=== PATIENT | female | born 1975 | race Caucasian/White ===

== ENCOUNTER 2017-06-24 22:52 | Inpatient (IN) | payer MEDICAID ==
[~2017-06-24] VITALS: Ht 149.9 cm; Wt 61.1 kg
[~2017-06-24 22:52] MED LIST: BIRTH CONTROL MEDS PO; FERR159T3 PO; MULT1CAP19 PO
[2017-06-24] MEDS ORDERED: OMNIPAQUE 350 MG/ML, 100ML BOTTLE ONE (23:10)
[2017-06-24] MEDS ORDERED: ANTIBIOTIC DROPS (23:12)
[2017-06-24] MEDS ORDERED: NEOM28OI4 TP (23:12)
[2017-06-24 23:29] LABS: BASOPHILS # (AUTO) 0.04 x10^3/uL (0-0.1); BASOPHILS % (AUTO) 0 % (0-1); EOSINOPHILS % (AUTO) 0 % (1-7); LYMPHOCYTES # (AUTO) 0.88 x10^3/uL (1-3.4); LYMPHOCYTES % (AUTO) 8 % (22-44); MD NO; MEAN CORPUSCULAR HEMOGLOBIN 27.7 pg (27.0-34.8); MEAN CORPUSCULAR HGB CONC 33.4 g/dL (32.4-35.8); MEAN CORPUSCULAR VOLUME 82.9 fL (80-100); MEAN PLATELET VOLUME 7.4 fL (7.4-10.4); MONOCYTES # (AUTO) 0.24 x10^3/uL (0.2-0.8); MONOCYTES % (AUTO) 2 % (2-9); NEUTROPHILS # (AUTO) 9.77 x10^3/uL (1.8-6.8); NEUTROPHILS % (AUTO) 89 % (42-75); PLATELET COUNT 345 x10^3/uL (130-400); RED BLOOD COUNT 4.64 x10^6/uL (3.82-5.3); RED CELL DISTRIBUTION WIDTH 14.7 % (9.6-15.2)
[2017-06-24] MEDS ORDERED: ONDANSETRON 2MG/ML, 2ML IVPush ONE (23:30)
[2017-06-24] MEDS ORDERED: SODIUM CHLORIDE 0.9% 1,000ML IVBOLUS ONE (23:30)
[2017-06-24] MEDS ORDERED: ONDANSETRON 2MG/ML, 2ML ONE (23:30)
[2017-06-24] MEDS ORDERED: MORPHINE SULFATE 4 MG/ML, 1ML ONE (23:30)
[2017-06-24] MEDS ORDERED: SODIUM CHLORIDE FLUSH 10ML SYR IVF ONE (23:30)
[2017-06-24] MEDS: MORPHINE SULFATE 4 MG/ML, 1ML IVPush PRN (23:35)
[2017-06-24 23:39] LABS: ALANINE AMINOTRANSFERASE 14 U/L (12-78); ALBUMIN 3.4 g/dL (3.4-5.0); ANION GAP 10 mmol/L (5-15); CALCIUM 8.4 mg/dL (8.5-10.1); CHLORIDE 99 mmol/L (98-107)
[2017-06-24 23:42] LABS: MICROSCOPIC NOT IND
[2017-06-24 23:44] LABS: ALKALINE PHOSPHATASE 87 U/L (45-117); BILIRUBIN,TOTAL 1.8 mg/dL (0.2-1.0); CREATININE 0.72 mg/dL (0.55-1.02); TOTAL PROTEIN 8.1 g/dL (6.4-8.2)
[2017-06-24 23:45] LABS: CULTURE INDICATED? NO
[2017-06-25] MEDS ORDERED: MORPHINE SULFATE 4 MG/ML, 1ML ONE ×2 (00:15→09:11)
[2017-06-25] MEDS: MORPHINE SULFATE 4 MG/ML, 1ML IVPush PRN (00:17)
[2017-06-25] MEDS ORDERED: CEFOTETAN PMX 1GM/50ML 50 ML IV ONE (01:00)
[2017-06-25] MEDS ORDERED: CEFOTETAN PMX 1GM/50ML 50 ML ONE ×2 (01:05→01:12)
[2017-06-25] MEDS ORDERED: SODIUM CHLORIDE 0.9% 1,000 ML IV ONE (01:05)
[2017-06-25] MEDS ORDERED: MORPHINE SULFATE 4 MG/ML, 1ML IVPush PRN (01:30)
[2017-06-25] MEDS ORDERED: ONDANSETRON 2MG/ML, 2ML IVPush PRN ×3 (01:30→13:30)
[2017-06-25 02:00] VITALS: BP 98/62
[2017-06-25] MEDS ORDERED: morphine SULFATE 10 MG/ML, 1ML IVPush PRN (07:00)
[2017-06-25 09:15] VITALS: BP 98/56
[2017-06-25] MEDS ORDERED: FENTANYL PF 100 MCG/2ML ONE ×2 (11:15→13:07)
[2017-06-25] MEDS ORDERED: MIDAZOLAM 1 MG/ML, 2ML ONE (11:15)
[2017-06-25] MEDS ORDERED: BUPIVACAINE/PF 0.5% ONE (11:47)
[2017-06-25] MEDS ORDERED: EPINEPHRINE 1 MG/ML, 1ML ONE (11:47)
[2017-06-25] MEDS ORDERED: hydrALAzine 20 MG/ML, 1ML IV PRN ×2 (13:30→17:00)
[2017-06-25] MEDS ORDERED: OXYcodone 5 MG/5 ML ORAL.SOL UDC PO PRN (13:30)
[2017-06-25] MEDS ORDERED: EPHEDRINE 50 MG/ML, 1ML IVPush PRN (13:30)
[2017-06-25] MEDS ORDERED: PROMETHAZINE 12.5 MG SUPP PR PRN (13:30)
[2017-06-25] MEDS ORDERED: morphine SULFATE 10 MG/ML, 1ML IV PRN ×2 (13:30→17:00)
[2017-06-25] MEDS ORDERED: LABETALOL 5MG/ML, 20ML IV PRN (13:30)
[2017-06-25] MEDS ORDERED: PROMETHAZINE 25 MG/ML, 1ML IV PRN (13:30)
[2017-06-25] MEDS ORDERED: MIDAZOLAM 1 MG/ML, 2ML IV PRN (13:30)
[2017-06-25] MEDS ORDERED: METOPROLOL 1 MG/ML, 5ML IV PRN (13:30)
[2017-06-25] MEDS ORDERED: ACETAMINOPHEN 325 MG TABLET PO PRN (13:30)
[2017-06-25] MEDS ORDERED: ALBUTEROL SULFATE 2.5 MG/3 ML NPPB PRN (13:30)
[2017-06-25] MEDS ORDERED: MEPERIDINE/PF 25MG/0.5ML IVPush PRN (13:30)
[2017-06-25] MEDS ORDERED: DIAZEPAM 5 MG/ML, 2ML IVPush PRN (13:30)
[2017-06-25] MEDS ORDERED: FENTANYL PF 100 MCG/2ML IV PRN (13:30)
[2017-06-25] MEDS ORDERED: HYDROcodone/APAP 7.5-325MG/15ML UDC PO PRN (13:30)
[2017-06-25] MEDS ORDERED: OXYcodone 5 MG/5 ML ORAL.SOL UDC ONE (14:20)
[2017-06-25] MEDS ORDERED: DIPHENHYDRAMINE 25 MG CAPSULE PO PRN (17:00)
[2017-06-25] MEDS ORDERED: DIPHENHYDRAMINE 50 MG/ML, 1ML IV PRN (17:00)
[2017-06-25] MEDS ORDERED: ACETAMINOPHEN 650 MG SUPP PR PRN (17:00)
[2017-06-25] MEDS ORDERED: DO NOT STOP ANTIBIOTICS AFTER 24HRS MC SCH (17:00)
[2017-06-25] MEDS ORDERED: ENALAPRILAT 1.25 MG/ML, 2ML IV PRN (17:00)
[2017-06-25] MEDS ORDERED: KETOROLAC 30 MG/1 ML IV PRN (17:00)
[2017-06-25 17:10] VITALS: BP 118/72
[2017-06-25] MEDS: HYDROcodone/APAP 5/325 TABLET PO PRN (17:33)
[2017-06-25] MEDS: ENOXAPARIN 40 MG/0.4 ML SQ SCH (17:38)
[2017-06-25] MEDS: D5%-LACTATED RINGERS 1,000 ML IV SCH (17:38)
[2017-06-25] MEDS: CEFOTETAN PMX 1GM/50ML 50 ML IVPB SCH (17:38)
[2017-06-25 19:27] VITALS: BP 90/51
[2017-06-25] MEDS: SODIUM CHLORIDE FLUSH 10ML SYR IVF SCH (21:00)
[2017-06-25 23:50] VITALS: BP 91/51
[2017-06-26] MEDS: D5%-LACTATED RINGERS 1,000 ML IV SCH ×3 (01:32→16:29)
[2017-06-26 04:20] VITALS: BP 91/59
[2017-06-26] MEDS: CEFOTETAN PMX 1GM/50ML 50 ML IVPB SCH ×2 (05:08→16:34)
[2017-06-26 05:23] LABS: ALBUMIN 2.2 g/dL (3.4-5.0); ANION GAP 5 mmol/L (5-15); CALCIUM 7.6 mg/dL (8.5-10.1); CHLORIDE 103 mmol/L (98-107); CREATININE 0.58 mg/dL (0.55-1.02)
[2017-06-26 05:24] LABS: BASOPHILS # (AUTO) 0.02 x10^3/uL (0-0.1); BASOPHILS % (AUTO) 0 % (0-1); EOSINOPHILS % (AUTO) 0 % (1-7); LYMPHOCYTES # (AUTO) 0.98 x10^3/uL (1-3.4); LYMPHOCYTES % (AUTO) 13 % (22-44); MD NO; MEAN CORPUSCULAR HEMOGLOBIN 27.4 pg (27.0-34.8); MEAN CORPUSCULAR HGB CONC 32.9 g/dL (32.4-35.8); MEAN CORPUSCULAR VOLUME 83.5 fL (80-100); MEAN PLATELET VOLUME 7.5 fL (7.4-10.4); MONOCYTES # (AUTO) 0.48 x10^3/uL (0.2-0.8); MONOCYTES % (AUTO) 6 % (2-9); NEUTROPHILS # (AUTO) 6.35 x10^3/uL (1.8-6.8); NEUTROPHILS % (AUTO) 81 % (42-75); PLATELET COUNT 191 x10^3/uL (130-400); RED BLOOD COUNT 3.41 x10^6/uL (3.82-5.3); RED CELL DISTRIBUTION WIDTH 15.1 % (9.6-15.2)
[2017-06-26 06:39] VITALS: BP 86/54
[2017-06-26] MEDS: SODIUM CHLORIDE FLUSH 10ML SYR IVF SCH ×2 (08:19→16:33)
[2017-06-26] MEDS: ACETAMINOPHEN 325 MG TABLET PO PRN ×2 (12:27→16:28)
[2017-06-26] MEDS ORDERED: PROPOFOL 10 MG/ML, 20ML ONE (12:28)
[2017-06-26] MEDS ORDERED: NEOSTIGMINE 1 MG/ML, 10ML ONE (12:28)
[2017-06-26] MEDS ORDERED: SUCCINYLCHOLINE 20 MG/ML, 10ML ONE (12:28)
[2017-06-26] MEDS ORDERED: ONDANSETRON 2MG/ML, 2ML ONE (12:28)
[2017-06-26] MEDS ORDERED: ROCURONIUM 10 MG/ML,10ML ONE (12:28)
[2017-06-26] MEDS ORDERED: CEFAZOLIN 1,000 MG ONE (12:28)
[2017-06-26] MEDS ORDERED: DEXAMETHASONE 4 MG/ML, 1ML ONE (12:28)
[2017-06-26] MEDS ORDERED: GLYCOPYRROLATE 0.2MG/1ML, 5ML ONE (12:28)
[2017-06-26 13:50] VITALS: BP 72/72
[2017-06-26 14:21] VITALS: BP 80/42
[2017-06-26] MEDS ORDERED: LACTATED RINGERS 1,000 ML IVBOLUS ONE (14:30)
[2017-06-26] MEDS ORDERED: ACETAMINOPHEN 325 MG TABLET PO PRN (14:38)
[2017-06-26] MEDS: ENOXAPARIN 40 MG/0.4 ML SQ SCH (16:28)
[2017-06-26] MEDS: HYDROcodone/APAP 5/325 TABLET PO PRN (17:46)
[2017-06-26 19:24] VITALS: BP 88/47
[2017-06-26 20:55] VITALS: BP 96/61
[2017-06-27] MEDS: D5%-LACTATED RINGERS 1,000 ML IV SCH ×3 (00:57→16:29)
[2017-06-27 00:58] VITALS: BP 82/49
[2017-06-27] MEDS: CEFOTETAN PMX 1GM/50ML 50 ML IVPB SCH ×2 (05:42→17:14)
[2017-06-27] MEDS: ONDANSETRON 2MG/ML, 2ML IV PRN ×2 (05:43→20:36)
[2017-06-27 06:12] LABS: CLOSTRIDIUM DIFFICILE ANTIGEN NEGATIVE; CLOSTRIDIUM DIFFICILE TOXIN NEGATIVE (Negative)
[2017-06-27] MEDS ORDERED: MORPHINE SULFATE 4 MG/ML, 1ML ONE (06:18)
[2017-06-27] MEDS: SODIUM CHLORIDE FLUSH 10ML SYR IVF SCH ×2 (08:47→20:56)
[2017-06-27 09:54] VITALS: BP 90/58
[2017-06-27 14:38] VITALS: BP 101/65
[2017-06-27] MEDS: ENOXAPARIN 40 MG/0.4 ML SQ SCH (17:14)
[2017-06-27 20:31] VITALS: BP 97/69
[2017-06-28] MEDS: D5%-LACTATED RINGERS 1,000 ML IV SCH ×3 (00:44→16:10)
[2017-06-28 02:45] VITALS: BP 94/60
[2017-06-28 05:35] LABS: BASOPHILS # (AUTO) 0.01 x10^3/uL (0-0.1); BASOPHILS % (AUTO) 0 % (0-1); EOSINOPHILS # (AUTO) 0.04 x10^3/uL (0-0.4); EOSINOPHILS % (AUTO) 1 % (1-7); LYMPHOCYTES # (AUTO) 0.96 x10^3/uL (1-3.4); LYMPHOCYTES % (AUTO) 21 % (22-44); MD NO; MEAN CORPUSCULAR HEMOGLOBIN 27.4 pg (27.0-34.8); MEAN CORPUSCULAR HGB CONC 33.2 g/dL (32.4-35.8); MEAN CORPUSCULAR VOLUME 82.8 fL (80-100); MEAN PLATELET VOLUME 7.4 fL (7.4-10.4); MONOCYTES # (AUTO) 0.35 x10^3/uL (0.2-0.8); MONOCYTES % (AUTO) 7 % (2-9); NEUTROPHILS # (AUTO) 3.29 x10^3/uL (1.8-6.8); NEUTROPHILS % (AUTO) 71 % (42-75); PLATELET COUNT 230 x10^3/uL (130-400); RED BLOOD COUNT 3.28 x10^6/uL (3.82-5.3); RED CELL DISTRIBUTION WIDTH 14.7 % (9.6-15.2)
[2017-06-28] MEDS: CEFOTETAN PMX 1GM/50ML 50 ML IVPB SCH (05:36)
[2017-06-28 05:49] LABS: CHLORIDE 107 mmol/L (98-107)
[2017-06-28 05:56] LABS: ALANINE AMINOTRANSFERASE 29 U/L (12-78); ALBUMIN 1.8 g/dL (3.4-5.0); ALKALINE PHOSPHATASE 72 U/L (45-117); ANION GAP 7 mmol/L (5-15); BILIRUBIN,TOTAL 0.5 mg/dL (0.2-1.0); CALCIUM 7.4 mg/dL (8.5-10.1); CREATININE 0.39 mg/dL (0.55-1.02); TOTAL PROTEIN 5.3 g/dL (6.4-8.2)
[2017-06-28 07:30] VITALS: BP 101/65
[2017-06-28] MEDS ORDERED: POTASSIUM CHLORIDE 30 MEQ in SODIUM CHLORIDE 0.9% 500 ML IV ONE (09:00)
[2017-06-28] MEDS ORDERED: POTASSIUM CHLORIDE 20 MEQ TAB.ER.PRT PO ONE (09:00)
[2017-06-28] MEDS: SODIUM CHLORIDE FLUSH 10ML SYR IVF SCH ×2 (09:56→21:00)
[2017-06-28] MEDS: ONDANSETRON ODT 4 MG PO PRN (13:07)
[2017-06-28 14:10] VITALS: BP 112/74
[2017-06-28] MEDS: CIPROFLOXACIN/PMX 400MG/200ML 200 ML IV SCH (14:37)
[2017-06-28] MEDS: ACETAMINOPHEN 325 MG TABLET PO PRN (14:39)
[2017-06-28] MEDS: METRONIDAZOLE PMX 500MG/100ML 100 ML IV SCH (16:10)
[2017-06-28] MEDS: ENOXAPARIN 40 MG/0.4 ML SQ SCH (18:25)
[2017-06-28 21:04] VITALS: BP 107/68
[2017-06-29] MEDS: METRONIDAZOLE PMX 500MG/100ML 100 ML IV SCH ×3 (00:18→15:47)
[2017-06-29] MEDS: D5%-LACTATED RINGERS 1,000 ML IV SCH ×3 (00:22→15:58)
[2017-06-29] MEDS: CIPROFLOXACIN/PMX 400MG/200ML 200 ML IV SCH ×2 (01:39→13:31)
[2017-06-29 01:43] VITALS: BP 107/71
[2017-06-29] MEDS ORDERED: HYDR-3240 PO (03:12)
[2017-06-29] MEDS ORDERED: DOCU-131 PO (03:13)
[2017-06-29] MEDS ORDERED: ONDA4TAB7 PO (03:14)
[2017-06-29] MEDS ORDERED: CIPR500T3 PO (03:17)
[2017-06-29] MEDS ORDERED: METR500T PO (03:17)
[2017-06-29] MEDS: SODIUM CHLORIDE FLUSH 10ML SYR IVF SCH (09:00)
[2017-06-29 09:02] VITALS: BP 112/68
[2017-06-29 12:54] VITALS: BP 102/65
[2017-06-29] MEDS: ENOXAPARIN 40 MG/0.4 ML SQ SCH (18:00)
[2017-06-29 18:02] VITALS: BP 105/69
[2017-06-29] MEDS: ONDANSETRON ODT 4 MG PO PRN (18:43)
[2017-06-29] MEDS: HYDROcodone/APAP 5/325 TABLET PO PRN (18:43)
== END 2017-06-29 18:50 | disposition home or self-care (01) | DRG 340 ==
LOC: ED 23:59 → 4NOR 06-25 01:05 → ED 06-25 10:54
PROVIDERS: ADMIT Surgery; ATTEND Surgery
PROC: 0DTJ4ZZ Resection of Appendix, Percutaneous Endoscopic Approach (ICD-10-PCS; principal; 2017-06-25 12:30)
DX: K35.3 Acute appendicitis with localized peritonitis (principal)
CPT/HCPCS: 36415; 74177; 80048; 80053; 81003; 82040; 83690; 84703; 85025; 87324; 88304; 96374; 96375; 96376; C1729; J0171; J0690; J0744; J1100; J1650; J1885; J2250; J2405; J2704; J2710; J3010; J3480; J3490; Q0162; Q9967; J0330; J2270; J7030; J7040; J7120; J7121; S0074

== ENCOUNTER 2018-06-25 16:30 | Emergency (ER) | payer MEDICAID ==
[~2018-06-25] VITALS: Ht 149.9 cm; Wt 56.0 kg
[~2018-06-25 16:30] MED LIST changes: +ANTIBIOTIC DROPS; +CIPR500T3 PO; +DOCU-131 PO; +HYDR-3240 PO; +METR500T PO; +NEOM28OI31 TP; +ONDA4TAB7 PO
[2018-06-25 16:34] VITALS: BP 151/99
--- NOTE | 2018-06-25 17:00 | NUR ---
Pt to 30 from lobby
--- NOTE | 2018-06-25 17:10 | NUR ---
Assumed care of patient. C/O right lower back burning pain radiating to rectum and right posterior thigh. Patient seen at [facility] last week, dx'd with sciatica, and instructed to take ibuprofen for pain, but has had no relief. Will continue to monitor.
--- NOTE | 2018-06-25 17:58 | NUR ---
Resting in [facility]. No needs.
[2018-06-25] MEDS ORDERED: KETOROLAC 30 MG/1 ML ONE (18:19)
[2018-06-25] MEDS ORDERED: KETOROLAC 30 MG/1 ML IM ONE (18:30)
--- NOTE | 2018-06-25 19:05 | NUR ---
Patient/Caregiver given discharge instructions and they have confirmed that they understand the instructions. Patient ambulatory with steady gait.
== END 2018-06-25 19:06 | disposition home or self-care (01) ==
LOC: ED 19:00
DX: G89.11 Acute pain due to trauma (principal); M79.18 Myalgia, other site
CPT/HCPCS: 72190; 96372; 99283; J1885

== ENCOUNTER 2018-07-30 02:20 | Emergency (ER) | payer MEDICAID ==
[~2018-07-30] VITALS: Ht 149.9 cm; Wt 57.1 kg
--- NOTE | 2018-07-30 02:36 | NUR ---
PT. TO ED WITH C/O RIGHT SIDE BUTTOCK PAIN THAT RADIATES DOWN LEG X MONTHS. PT. ALSO C/O RECTAL PAIN THAT RADIATES TO VAGINA. DENIES ANY RECENT INTERCOURSE. PT. REPORTS WAS SEEN BY PRIMARY MD ABOUT 1 WEEK AGO AND "I AM SUPPOSED TO GET AN MRI BUT I CAN'T WAIT BECAUSE THE PAIN IS TOO BAD." PT. REPORTS DECREASED URINATION. PT. AMBULATORY WITH STEADY GAIT. URINE SAMPLE PROVIDED AND TAKEN TO LAB. MEHNAZ JUAREZ IN TO EVAL PT. AND DISCUSS POC WITH PT. CALL LIGHT IN REACH.
[2018-07-30] MEDS ORDERED: NABU750T PO (02:42)
[2018-07-30] MEDS ORDERED: GABA100C PO (02:42)
[2018-07-30] MEDS ORDERED: KETOROLAC 30 MG/1 ML ONE (02:43)
[2018-07-30 02:52] LABS: MICROSCOPIC NOT IND
[2018-07-30 02:55] LABS: CULTURE INDICATED? NO
[2018-07-30] MEDS ORDERED: KETOROLAC 30 MG/1 ML IM ONE (03:00)
--- NOTE | 2018-07-30 03:26 | NUR ---
MEHNAZ JUAREZ IN TO DISCUSS D/C PLAN WITH PT.
[2018-07-30 03:27] VITALS: BP 112/68
--- NOTE | 2018-07-30 03:33 | NUR ---
DR. PERALES IN TO DISCUSS D/C PLAN WITH PT. AND AWARE OF PT. CONTINUED C/O 12/27 PAIN. Addendum: 07/30/18 at 0338 by JUDY PA AT TO DISCUSS D/C PLAN AGAIN; NO DR. PERALES.
== END 2018-07-30 03:39 | disposition home or self-care (01) ==
LOC: ED 03:30
DX: K62.89 Other specified diseases of anus and rectum (principal); R10.2 Pelvic and perineal pain
CPT/HCPCS: 81003; 96372; 99283; J1885

== ENCOUNTER 2018-08-09 13:12 | Emergency (ER) | payer MEDICAID ==
[~2018-08-09] VITALS: Ht 149.9 cm; Wt 58.2 kg
[~2018-08-09 13:12] MED LIST changes: +GABA100C PO; +NABU750T PO
[2018-08-09 14:20] LABS: BASOPHILS # (AUTO) 0.02 x10^3/uL (0-0.1); BASOPHILS % (AUTO) 0 % (0-1); EOSINOPHILS # (AUTO) 0.05 x10^3/uL (0-0.4); EOSINOPHILS % (AUTO) 2 % (1-7); LYMPHOCYTES # (AUTO) 1.63 x10^3/uL (1-3.4); LYMPHOCYTES % (AUTO) 45 % (22-44); MD NO; MEAN CORPUSCULAR HEMOGLOBIN 26.9 pg (27.0-34.8); MEAN CORPUSCULAR HGB CONC 32.1 g/dL (32.4-35.8); MEAN CORPUSCULAR VOLUME 83.8 fL (80-100); MEAN PLATELET VOLUME 7.2 fL (7.4-10.4); MONOCYTES # (AUTO) 0.28 x10^3/uL (0.2-0.8); MONOCYTES % (AUTO) 8 % (2-9); NEUTROPHILS # (AUTO) 1.67 x10^3/uL (1.8-6.8); NEUTROPHILS % (AUTO) 46 % (42-75); PLATELET COUNT 351 x10^3/uL (130-400); RED CELL DISTRIBUTION WIDTH 15.6 % (9.6-15.2)
[2018-08-09 14:31] LABS: ALANINE AMINOTRANSFERASE 25 U/L (12-78); ALBUMIN 3.6 g/dL (3.4-5.0); ANION GAP 3 mmol/L (5-15); CALCIUM 8.6 mg/dL (8.5-10.1); CHLORIDE 108 mmol/L (98-107)
[2018-08-09 14:34] LABS: ALKALINE PHOSPHATASE 361 U/L (45-117); BILIRUBIN,TOTAL 0.3 mg/dL (0.2-1.0); CREATININE 0.68 mg/dL (0.55-1.02); TOTAL PROTEIN 7.5 g/dL (6.4-8.2)
--- NOTE | 2018-08-09 16:33 | NUR ---
Pt ambulates with steady gait and balance from lobby to room. Pt's spouse at bedside. Pt aware of NPO status at this time. NADN. No obvious defecits observed.
[2018-08-09 17:25] LABS: CREATINE KINASE, TOTAL 73 U/L (26-192)
[2018-08-09 17:35] LABS: CULTURE INDICATED? NO; MICROSCOPIC NOT IND
--- NOTE | 2018-08-09 17:42 | NUR ---
Pt back to room from [facility] on [facility].
[2018-08-09] MEDS ORDERED: OMNIPAQUE 350 MG/ML, 100ML BOTTLE ONE (17:51)
--- NOTE | 2018-08-09 19:12 | NUR ---
Attempted to d/c pt and provide pt education, d/c paperwrk and prescription, and referall information. Pt and spouse at bedside have numerous questions and concers regarding current health issue and plan or care. Discussed pt plan of care with pt and spouse per ED MD recommendation and Neurosurgery recommendation to ED MD. Pt and spouse requesting to speak to ED MD asking, "why is this not being treated here now? We don't want three months to go by and nothing happen and then she has two months to live." ED MD aware.
--- NOTE | 2018-08-09 19:21 | NUR ---
REPORT RECEIVED FROM ONEL ARZATE.
[2018-08-09 19:37] VITALS: BP 98/56
--- NOTE | 2018-08-09 19:39 | NUR ---
PT GIVEN DC INSTRUCTIONS AND SCRIPTS. PT EDUCATED REGARDING DC MEDICATIONS. PT'S AOX4. RESPS EVEN AND UNLABORED. PT AMB TO DC WITH STEADY GAIT. NO ACUTE DISTRESS AT DC.
== END 2018-08-09 19:40 | disposition home or self-care (01) ==
LOC: ED 16:26
DX: R10.2 Pelvic and perineal pain (principal); M25.551 Pain in right hip
CPT/HCPCS: 36415; 71045; 72193; 80053; 81003; 82550; 84703; 85025; 93005; 99284; Q9967